=== PATIENT | female | born 1980 | race Two or more races ===

== ENCOUNTER 2019-03-01 12:30 | Inpatient (IN) | payer OTHER ==
[~2019-03-01] VITALS: Ht 170.2 cm; Wt 2.3 kg
[2019-03-06] MEDS ORDERED: PRENATAL TABLE1 EACH PO (10:31)
== END 2019-03-09 15:32 | disposition home or self-care (01) | DRG 785 ==
LOC: O/R 03-06 09:55 → LDR 03-06 12:30 → OB/GYN 03-06 14:59
PROVIDERS: ADMIT Obstetrics & Gynecology
PROC: 0UL70ZZ Occlusion of Bilateral Fallopian Tubes, Open Approach (ICD-10-PCS; 2019-03-06)
PROC: 4A1HXCZ Monitoring of Products of Conception, Cardiac Rate, External Approach (ICD-10-PCS; 2019-03-06)
PROC: 10D00Z1 Extraction of Products of Conception, Low, Open Approach (ICD-10-PCS; principal; 2019-03-06 12:30)
DX: O82 Encounter for cesarean delivery without indication (principal); Z3A.39 39 weeks gestation of pregnancy; Z37.0 Single live birth; Z30.2 Encounter for sterilization